=== PATIENT | female | born 1985 | race Caucasian/White ===

== ENCOUNTER 2017-05-14 05:04 | Inpatient (IN) | payer MEDICARE, MEDICAID ==
[2017-05-14] MEDS ORDERED: NS 0.9% 1000 ML* 1,000 ML IV ONE (05:10)
[2017-05-14] MEDS ORDERED: Charcoal ACTIVATED* 25 GM/120 ML BTL PO ONE (05:10)
[2017-05-14 05:25] LABS: Hematocrit 33 % (35-47); Hemoglobin 10.7 g/dl (12.0-16.0); Mean Corpuscular HGB Conc 32 g/dl (31-36); Mean Corpuscular Hemoglobin 27 pg (27-31); Mean Corpuscular Volume 83 fL (80-97); Mean Platelet Volume 8 um3 (7.4-10.4); Red Blood Count 4.02 10^6/ul (4.0-5.4); Red Cell Distribution Width 16 % (10.5-15); White Blood Count 5.2 10^3/ul (3.5-10.8)
[2017-05-14 05:47] LABS: ALT 26 U/L (7-52); AST 28 U/L (13-39); Albumin 4.3 g/dL (3.2-5.2); Alkaline Phosphatase 49 U/L (34-104); Anion Gap 9 mmol/L (2-11); BUN/Creatinine Ratio 8.2 (8-20); Blood Urea Nitrogen 6 mg/dL (6-24); CO2 Carbon Dioxide 25 mmol/L (22-32); Calcium 9.1 mg/dL (8.6-10.3); Chloride 105 mmol/L (101-111); EGFR African American 118.1 (>60); EGFR Non-African American 91.8 (>60); Globulin 3.2 g/dL (2-4); Glucose 98 mg/dL (70-100); Potassium 3.8 mmol/L (3.5-5.0); Sodium 139 mmol/L (133-145); Total Protein 7.5 g/dL (6.4-8.9)
[2017-05-14 05:59] LABS: Acetaminophen < 15 mcg/mL; Alcohol 205 mg/dL (<10); Salicylate < 2.50 mg/dL (<30)
--- NOTE | 2017-05-14 06:18 | ED ---
Prateek Velasquez Claudia, scribed for Quoc Haines MD on 05/14/17 at 0517 . Substance Abuse/Use - HPI Summary HPI Summary: 31 year old female presents to [facility] ED after allegedly taking about 30 10mg Ativan. Pt mother brought the pt in tonight. Pt took the pills at approximately 5:30am. 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 Ingestion History: Type/Name Of Drug - Ativan Overdose Characteristics: Oral - Allergies/Home Medications Allergies/Adverse Reactions: Allergies Allergy/AdvReac Type Severity Reaction Status Date / Time No Known Allergies Allergy Verified 05/14/17 06:40 PMH/Surg Hx/FS Hx/Imm Hx Previously Healthy: Yes Endocrine/Hematology History: Denies: Hx Diabetes Cardiovascular History: Denies: Hx Myocardial Infarction Infectious Disease History: Denies: Traveled Outside the [place] in Last 30 Days - Family History Family History: Bipolar Disorder - Social History Occupation: Disabled Lives: Alone Alcohol Use: None Hx Substance Use: No Substance Use Type: Reports: None Hx Tobacco Use: No Smoking Status (MU): Never Smoked Tobacco Review of Systems Positive: Depressed All Other Systems Reviewed And Are Negative: No Physical Exam Triage Information Reviewed: Yes Vital Signs On Initial Exam: Initial Vitals Temp Pulse Resp BP Pulse Ox 98.1 F 105 15 143/93 95 05/14/17 05:35 05/14/17 05:35 05/14/17 05:35 05/14/17 05:35 05/14/17 05:35 Vital Signs Reviewed: Yes Appearance: Positive: No Pain Distress - sleepy but arousable Skin: Positive: Warm Head/Face: Positive: Normal Head/Face Inspection Eyes: Positive: DAJA ENT: Positive: Hearing grossly normal Neck: Positive: Supple Respiratory/Lung Sounds: Positive: Clear to Auscultation, Breath Sounds Present Cardiovascular: Positive: RRR Abdomen Description: Positive: Nontender, Soft Bowel Sounds: Positive: Present Neurological: Positive: Alert, Oriented to Person Place, Time Psychiatric: Positive: Depressed Diagnostics - Vital Signs Vital Signs Temp Pulse Resp BP Pulse Ox 05/14/17 05:35 98.1 F 105 15 143/93 95 - Laboratory Lab Results: Lab Results 07/04/2505/14/17 05/14/17 Range/Units 05:15 05:15 05:15 WBC 5.2 (3.5-10.8) 10^3/ul RBC 4.02 (4.0-5.4) 10^6/ul Hgb 10.7 L (12.0-16.0) g/dl Hct 33 L (35-47) % MCV 83 (80-97) fL MCH 27 (27-31) pg MCHC 32 (31-36) g/dl RDW 16 H (10.5-15) % Plt Count 316 (150-450) 10^3/ul MPV 8 (7.4-10.4) um3 Neut % (Auto) 55.5 (38-83) % Lymph % (Auto) 37.3 (25-47) % [place] % (Auto) 5.1 (1-9) % Eos % (Auto) 1.9 (0-6) % Baso % (Auto) 0.2 (0-2) % Absolute Neuts (auto) 2.9 (1.5-7.7) 10^3/ul Absolute Lymphs (auto) 2.0 (1.0-4.8) 10^3/ul Absolute Monos (auto) 0.3 (0-0.8) 10^3/ul Absolute Eos (auto) 0.1 (0-0.6) 10^3/ul Absolute Basos (auto) 0 (0-0.2) 10^3/ul Absolute Nucleated RBC 0 10^3/ul Nucleated RBC % 0 Sodium 139 (133-145) mmol/L Potassium 3.8 (3.5-5.0) mmol/L Chloride 105 (101-111) mmol/L Carbon Dioxide 25 (22-32) mmol/L Anion Gap 9 (2-11) mmol/L BUN 6 (6-24) mg/dL Creatinine 0.73 (0.51-0.95) mg/dL Est GFR ( Amer) 118.1 (>60) Est GFR (Non-Af Amer) 91.8 (>60) BUN/Creatinine Ratio 8.2 (8-20) Glucose 98 (70-100) mg/dL Lactic Acid 1.8 (0.5-2.0) mmol/L Calcium 9.1 (8.6-10.3) mg/dL Total Bilirubin 0.20 (0.2-1.0) mg/dL AST 28 (13-39) U/L ALT 26 (7-52) U/L Alkaline Phosphatase 49 (34-104) U/L Total Protein 7.5 (6.4-8.9) g/dL Albumin 4.3 (3.2-5.2) g/dL Globulin 3.2 (2-4) g/dL Albumin/Globulin Ratio 1.3 (1-3) Salicylates < 2.50 (<30) mg/dL Acetaminophen < 15 mcg/mL Serum Alcohol 205 H (<10) mg/dL Result Diagrams: 05/14/17 05:15 05/14/17 05:15 Lab Statement: Any lab studies that have been ordered have been reviewed, and results considered in the medical decision making process. - EKG 5:41 Cardiac Rate: NL EKG Rhythm: Sinus Rhythm - 99 beats/min Course/Dx - Course Assessment/Plan: MDM: Charcoal is administered to the pt as soon as she arrived in the ED. Pt will be signed-out to Dr. Yousif at 0700 - Diagnoses Provider Diagnoses: Overdose - Critical Care Time Critical Care Time: 30-74 min Discharge - Discharge Plan Condition: Guarded Disposition: ADMITTED TO [facility] Discharge Disposition Comment: Signed-out at 0700am to Dr. Yousif. Referrals: Donna GALLO,Devan Rubalcava [Primary Care Provider] - The documentation as recorded by the Prateek ramirez Claudia accurately reflects the service I personally performed and the decisions made by , Quoc Haines MD.
[2017-05-14 10:11] LABS: Urine Bilirubin Negative (Negative); Urine Glucose Negative (Negative); Urine Nitrite Negative (Negative)
[2017-05-14] MEDS ORDERED: Albuterol/Ipratropium NEB.SOL* Albuterol 2.5 MG/Ipratropium 0.5 MG 3 ML INH ONE (10:45)
--- NOTE | 2017-05-14 11:47 | RAD ---
INDICATION: Hypoxia COMPARISON: Most recent comparison chest x-rays dated November 09, 2011 TECHNIQUE: Single AP portable view of the chest was obtained. FINDINGS: Image quality is compromised due to the relative inferiority of a portable chest x-ray. The heart and mediastinum exhibit normal size and contour. The lungs are grossly clear. There is no evidence of a large pleural effusion. Visualized bones are normal for the patient's age. IMPRESSION: No radiographic evidence for acute cardiopulmonary abnormality on this portable chest x-ray.
[2017-05-14] MEDS ORDERED: Al Hydrox/Mg Hydrox/Simet LIQ* 30 ML UDC PO PRN (12:32)
[2017-05-14] MEDS ORDERED: Nicotine Inhaler* 10 MG AMP INH PRN (12:32)
[2017-05-14 12:39] LABS: Benzodiazepine Urine Screen None Detected (None Detect)
[2017-05-14] MEDS: Acetaminophen TAB* 325 MG PO PRN (16:03)
[2017-05-14] MEDS: QUEtiapine TAB* 100 MG PO SCH (19:52)
[2017-05-14] MEDS ORDERED: Nicotine Patch Removal NOTE PATCH OFF SCH (21:00)
[2017-05-15] MEDS: Acetaminophen TAB* 325 MG PO PRN ×3 (00:50→12:20)
[2017-05-15] MEDS ORDERED: hydrOXYzine HCL TAB* 50 MG PO ONE (01:38)
[2017-05-15] MEDS ORDERED: hydrOXYzine HCL TAB* 50 MG ONE (01:41)
[2017-05-15] MEDS ORDERED: Nicotine PATCH 21 MG/24 HR* PATCH TRANSDERM SCH (08:00)
[2017-05-15] MEDS ORDERED: Nicotine PATCH 14 MG/24 HR* PATCH TRANSDERM SCH (08:00)
[2017-05-15] MEDS ORDERED: Nicotine PATCH 7 MG/24 HR* PATCH TRANSDERM SCH (08:00)
[2017-05-15] MEDS: Vitamin THERAPEUTIC TAB PO SCH (09:20)
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
[2017-05-15] MEDS ORDERED: Loperamide CAP* 2 MG PO ONE (16:05)
[2017-05-15] MEDS ORDERED: Loperamide CAP* 2 MG ONE ×2 (16:44→16:45)
[2017-05-15] MEDS ORDERED: Loperamide CAP* 2 MG PO PRN (18:53)
[2017-05-15] MEDS: LORazepam TAB(*) 1 MG PO SCH ×2 (19:03→20:26)
[2017-05-15] MEDS: Zolpidem TAB* 5 MG PO SCH (20:26)
[2017-05-15] MEDS: QUEtiapine TAB* 100 MG PO SCH (20:27)
[2017-05-16] MEDS: DULoxetine DR CAP* 30 MG CAP.DR PO SCH (09:49)
[2017-05-16] MEDS: LORazepam TAB(*) 1 MG PO SCH ×2 (09:49→21:47)
[2017-05-16] MEDS: Vitamin THERAPEUTIC TAB PO SCH (09:49)
[2017-05-16] MEDS: FLUoxetine CAP* 20 MG PO SCH (09:50)
[2017-05-16] MEDS: Methocarbamol TAB* 500 MG PO PRN (10:18)
[2017-05-16] MEDS: Acetaminophen TAB* 325 MG PO PRN (10:19)
[2017-05-16] MEDS: Zolpidem TAB* 5 MG PO SCH (21:47)
[2017-05-16] MEDS: QUEtiapine TAB* 100 MG PO SCH (21:47)
[2017-05-17] MEDS: LORazepam TAB(*) 1 MG PO SCH ×2 (08:37→20:18)
[2017-05-17] MEDS: DULoxetine DR CAP* 30 MG CAP.DR PO SCH (08:38)
[2017-05-17] MEDS: FLUoxetine CAP* 20 MG PO SCH (08:38)
[2017-05-17] MEDS: Vitamin THERAPEUTIC TAB PO SCH (08:38)
[2017-05-17] MEDS: Methocarbamol TAB* 500 MG PO PRN (08:53)
[2017-05-17] MEDS: Acetaminophen TAB* 325 MG PO PRN (10:59)
[2017-05-17] MEDS ORDERED: ALMOTRIPTAN 12.5 MG PO PRN (12:38)
--- NOTE | 2017-05-17 16:45 | PN ---
Subjective - Subjective Service Type: 70846 Hosp care 15 min low complexity Subjective: Carmen appears to be doing fine and says she feels a lot better and happy today. Denies any thoughts of self harm, hallucinations or delusions. Engaged in groups and following all unit routines. Planning to go out to help her mother and do lots of arts and crafts. Objective - Appearance Appearance: Obese Dysmorphic Features: No Hygiene: Normal Grooming: Well Kept - Behavior Psychomotor Activities: Normal Exhibits Abnormal Movement: No - Attitude and Relatedness Attitude and Relatedness: Appropriate - Speech Quality: Unpressured Latencies: Normal Quantity: Appropriate - Mood Patient's Decription of Mood: "Fine" - Affect Observed Affect: Non-labile Affect Consistent with: Euthymia - Thought Process Patient's Thought Process: Coherent, Goal Directed Thought Content: No Passive Wish, No Suicidal Planning, No Homicidal Ideation, No Paranoid Ideation - Sensorium Experiencing Hallucinations: No, Sensorium is Clear Type of Hallucinations: Visual: No, Auditory: No, Command: No - Level of Consciousness Level of Consciousness: Alert Orientation: Yes Intact, Yes Orientated to Time, Yes Orientated to Place, Yes Orientated to Person - Impulse Control Impulse Control: Intact - Insight and Judgement Insight and Judgement: Fair - Group Participation Particating in Group Activities: Yes - Medication Management Medication Management Adherence: Yes Assessment - Assessment Merits Inpatient Hospitalization: Consolidate Improvements, Pending Safe DC Plan Plan - Plan Treatment Plan: Name: CARMEN ANGLIN Birthdate: 1985 [id number] Continued Medication Management: Continue Outpt Medication Medications: Current Medications Acetaminophen (Tylenol Tab*) 650 mg PO Q4H PRN PRN Reason: for pain; or Temp >101 F Last Admin: 05/17/17 10:59 Dose: 650 mg Al Hydrox/Mg Hydrox/Simethicone (Maalox Plus*) 30 ml PO Q4H PRN PRN Reason: INDIGESTION Almotriptan Malate (Axert (Nf)) 12.5 mg PO BEDTIME PRN PRN Reason: MIGRAINE HEADACHE Duloxetine HCl (Cymbalta Cap*) 30 mg PO DAILY [facility] Last Admin: 05/17/17 08:38 Dose: 30 mg Fluoxetine HCl (Prozac Cap*) 40 mg PO DAILY [facility] Last Admin: 05/17/17 08:38 Dose: 40 mg Loperamide HCl (Imodium Cap*) 2 mg PO . PRN PRN Reason: AFTER EACH UNFORMED STOOL Lorazepam (Ativan Tab(*)) 1 mg PO BID BATSHEVA Last Admin: 05/17/17 08:37 Dose: 1 mg Methocarbamol (Robaxin Tab*) 750 mg PO DAILY PRN PRN Reason: SPASMS Last Admin: 05/17/17 08:53 Dose: 750 mg Multivitamins (Theragran Tab*) 1 tab PO DAILY BATSHEVA Last Admin: 05/17/17 08:38 Dose: 1 tab Nicotine (Nicotine Inhaler*) 10 mg INH Q2H PRN PRN Reason: CRAVING Quetiapine Fumarate (Seroquel Tab*) 200 mg PO BEDTIME BATSHEVA Last Admin: 05/16/17 21:47 Dose: 200 mg Zolpidem Tartrate (Ambien Tab*) 5 mg PO BEDTIME BATSHEVA Stop: 05/18/17 20:59 Last Admin: 05/16/17 21:47 Dose: Not Given - Discharge Plan Discharge Plan: Outpatient Follow Up Outpatient Program: [facility]
[2017-05-17] MEDS: Zolpidem TAB* 5 MG PO SCH (20:19)
[2017-05-17] MEDS: QUEtiapine TAB* 100 MG PO SCH (21:50)
[2017-05-18 08:10] VITALS: BP 120/75
[2017-05-18] MEDS: FLUoxetine CAP* 20 MG PO SCH (08:56)
[2017-05-18] MEDS: DULoxetine DR CAP* 30 MG CAP.DR PO SCH (08:57)
[2017-05-18] MEDS: LORazepam TAB(*) 1 MG PO SCH (08:57)
[2017-05-18] MEDS: Methocarbamol TAB* 500 MG PO PRN (08:57)
[2017-05-18] MEDS: Vitamin THERAPEUTIC TAB PO SCH (08:57)
--- NOTE | 2017-05-18 11:25 | PN ---
MHU: Group Therapy Note - Service Type Service Type: [id number] Group Psychotherapy - Cognitive Behavioral Group Therapy ( CBT):Patient was attentive and participatory in CBT programming this morning, and remained in good behavioral control. Patient expressed positive insights regarding relevant treatment interventions and goals.
--- NOTE | 2017-05-18 13:22 | DS ---
Subjective - Subjective Service Types: [id number] [facility] Day Mgmt simple under 30 min Subjective: Patient noted to be full in affect, pleasant and social with peers/staff over the weekend. Patient reports improvement in mood which she attributes to her improved sleep over the weekend. Patient on half home dose of Seroquel and half home dose of ambien. She reported no symptoms of hypoventilation syndrome and reported "great sleep". She denies med s/e on Duloxetine for fibromyalgia and Prozac for mood/anxiety. Patient reports no SI/HI or AH/VH over the weekend. Appetite has been wnl. Patient asked to present to her local ED if SI recurs. She was amenable and acknowledged understanding of her family and community supports. Objective - Appearance Appearance: Well Developed/Nourished Dysmorphic Features: No Hygiene: Normal Grooming: Fairly Well Kept - Behavior Psychomotor Activities: Normal Exhibits Abnormal Movement: No - Attitude and Relatedness Attitude and Relatedness: Cooperative Eye Contact: Fair - Speech Quality: Unpressured Latencies: Normal Quantity: Appropriate - Mood Patient's Decription of Mood: "Good" - Affect Observed Affect: Good Affect Consistent with: Euthymia - Thought Process Patient's Thought Process: Coherent Thought Content: No Passive Wish, No Suicidal Planning, No Homicidal Ideation, No Paranoid Ideation - Sensorium Experiencing Hallucinations: No, Sensorium is Clear Type of Hallucinations: Visual: No, Auditory: No, Command: No - Level of Consciousness Level of Consciousness: Alert Orientation: Yes Intact, Yes Orientated to Time, Yes Orientated to Place, Yes Orientated to Person - Impulse Control Impulse Control: Intact - Insight and Judgement Insight and Judgement: Good - Group Participation Particating in Group Activities: Yes - Medication Management Medication Management Adherence: Yes Treatment Course & Assessment Clinical Course & Impression: HOSPITAL COURSE: 31yo female with PPHx significant for MDD, Borderline PD, Alcohol use d/o, and Cannabis use d/o presented [place] [facility] [place] in by friends after patient reportedly OD on 29 -10mg Ambien tabs after her BF of 8 months abruptly ended their relationship. Patient also reports emotional strain as her parents are . Patient has hx of 1 prior suicide attempt. Per mother, patient called her just before the OD, as well as multiple friends. Patient reports no current MH provider, MH meds Rx'd by her PCP. Patient Rx'd Ambien 10mg qhs and Ativan currently by her PCP. In the ED, patient was stabilized. Patient currently report benzo w/d symptoms. On admission, patient was placed on scheduled Ativan and her Ambien has been continued, but at 5mg po qhs. Ativan to be discontinued on Thursday, and patient instructed Ambien and Seroquel will not be rxd together by this provider due to her current report of experiencing Sxs of MARISA vs Hypoventalation syndrome 2/2 likely to her meds. Patient's Ambien decreased to 5mg from 10mg po qhs and Seroquel was decreased to 200mg from 400mg po qhs. Patient was started on Duloxetine 30mg po qam for mood/anxiety and Fibromyalgia pain. Patient's Prozac was increased from 20mg to 40mg daily for mood/anxiety. Patient was monitored on this regimen over the weekend. On day of discharge, patient noted to be full in affect, pleasant and social with peers/staff over the weekend. Patient reports vast improvement in mood, which she attributes to her improved sleep over the weekend. She reported no symptoms of MARISA/hypoventilation syndrome and reported "great sleep". She denies med s/e. She was noted to participate in milieu activities and participate well in groups. Patient reports no SI/HI or AH/VH over the weekend. She is psychiatrically stable and future oriented. Pateint's acute risk has been reduced significantly. Patient is amenable to f/u and will be discharge home to mother's care. PERTINENT LABS: Laboratory Tests 05/14/17 05/14/17 05/14/17 05:15 05:15 05:15 WBC 5.2 RBC 4.02 Hgb 10.7 L Hct 33 L MCV 83 MCH 27 MCHC 32 RDW 16 H Plt Count 316 MPV 8 Neut % (Auto) 55.5 Lymph % (Auto) 37.3 [place]ye % (Auto) 5.1 Eos % (Auto) 1.9 Baso % (Auto) 0.2 Absolute Neuts (auto) 2.9 Absolute Lymphs (auto) 2.0 Absolute Monos (auto) 0.3 Absolute Eos (auto) 0.1 Absolute Basos (auto) 0 Absolute Nucleated RBC 0 Nucleated RBC % 0 Sodium 139 Potassium 3.8 Chloride 105 Carbon Dioxide 25 Anion Gap 9 BUN 6 Creatinine 0.73 Est GFR ( Amer) 118.1 Est GFR (Non-Af Amer) 91.8 BUN/Creatinine Ratio 8.2 Glucose 98 Lactic Acid 1.8 Calcium 9.1 Total Bilirubin 0.20 AST 28 ALT 26 Alkaline Phosphatase 49 Total Protein 7.5 Albumin 4.3 Globulin 3.2 Albumin/Globulin Ratio 1.3 Triglycerides Cholesterol LDL Cholesterol HDL Cholesterol Beta HCG, Quant < 0.60 Urine Color Urine Appearance Urine pH Ur Specific [place] Urine Protein Urine Ketones Urine Blood Urine Nitrate Urine Bilirubin Urine Urobilinogen Ur Leukocyte Esterase Urine Glucose Salicylates < 2.50 Urine Opiates Screen Acetaminophen < 15 Ur Barbiturates Screen Ur Phencyclidine Scrn Ur Amphetamines Screen U Benzodiazepines Scrn Urine Cocaine Screen U Cannabinoids Screen Serum Alcohol 205 H 05/14/17 05/14/17 05/15/17 10:00 12:05 05:15 WBC RBC Hgb Hct MCV MCH MCHC RDW Plt Count MPV Neut % (Auto) Lymph % (Auto) [place]ye % (Auto) Eos % (Auto) Baso % (Auto) Absolute Neuts (auto) Absolute Lymphs (auto) Absolute Monos (auto) Absolute Eos (auto) Absolute Basos (auto) Absolute Nucleated RBC Nucleated RBC % Sodium Potassium Chloride Carbon Dioxide Anion Gap BUN Creatinine Est GFR ( Amer) Est GFR (Non-Af Amer) BUN/Creatinine Ratio Glucose Lactic Acid Calcium Total Bilirubin AST ALT Alkaline Phosphatase Total Protein Albumin Globulin Albumin/Globulin Ratio Triglycerides 605 Cholesterol 301 LDL Cholesterol HDL Cholesterol 49.0 Beta HCG, Quant Urine Color Straw Urine Appearance Clear Urine pH 7.0 Ur Specific [place] 1.006 L Urine Protein Negative Urine Ketones Negative Urine Blood Negative Urine Nitrate Negative Urine Bilirubin Negative Urine Urobilinogen Negative Ur Leukocyte Esterase Negative Urine Glucose Negative Salicylates Urine Opiates Screen None detected Acetaminophen Ur Barbiturates Screen None detected Ur Phencyclidine Scrn None detected Ur Amphetamines Screen None detected U Benzodiazepines Scrn None detected Urine Cocaine Screen None detected U Cannabinoids Screen Presumptive positive H Serum Alcohol Discharge Meds: Home Medications Medication Instructions Recorded Confirmed Type Axert (NF) 12.5 mg PO BEDTIME 05/14/17 05/14/17 History Robaxin-750 MG TAB 750 mg PO BEDTIME 05/14/17 05/14/17 History Singulair 10 MG TAB* 10 mg PO BEDTIME 05/14/17 05/14/17 History Aciphex (NF) 20 mg PO BEDTIME #30 05/18/[address] CAP* [Cymbalta CAP*] 30 mg PO DAILY #30 cap 05/18/17 Rx FLUoxetine CAP* [Prozac CAP*] 40 mg PO DAILY #60 cap 05/18/17 Rx QUEtiapine TAB* [Seroquel TAB*] 200 mg PO BEDTIME #60 tab 05/18/17 Rx Vitamin THERAPEUTIC TAB* 1 tab PO DAILY #30 tab 05/18/17 Rx [Theragran TAB*] Consultants: NONE Follow-Up: Appts for within the next 2 weeks scheduled by for PCP who Rx's meds. Clear for Discharge: Adequate Clinical Respons, Acceptable Safety Profile Inpatient DSM-IV Dx: 1. MDD, R,S w/o PFs. 2. Borderline PD. 3. Alcohol use d/o. 4. Cannabis use d/o Discharge Planning - Discharge Planning Discharge Plan: Outpatient Follow Up Recommendations for Continuing Care: Psychotherapy Medications: Current Medications Acetaminophen (Tylenol Tab*) 650 mg PO Q4H PRN PRN Reason: for pain; or Temp >101 F Last Admin: 05/17/17 10:59 Dose: 650 mg Al Hydrox/Mg Hydrox/Simethicone (Maalox Plus*) 30 ml PO Q4H PRN PRN Reason: INDIGESTION Almotriptan Malate (Axert (Nf)) 12.5 mg PO BEDTIME PRN PRN Reason: MIGRAINE HEADACHE Duloxetine HCl (Cymbalta Cap*) 30 mg PO DAILY [facility] Last Admin: 05/18/17 08:57 Dose: 30 mg Fluoxetine HCl (Prozac Cap*) 40 mg PO DAILY [facility] Last Admin: 05/18/17 08:56 Dose: 40 mg Loperamide HCl (Imodium Cap*) 2 mg PO . PRN PRN Reason: AFTER EACH UNFORMED STOOL Last Admin: 05/17/17 23:40 Dose: 2 mg Lorazepam (Ativan Tab(*)) 0.5 mg PO BID [facility] Methocarbamol (Robaxin Tab*) 750 mg PO DAILY PRN PRN Reason: SPASMS Last Admin: 05/18/17 08:57 Dose: 750 mg Multivitamins (Theragran Tab*) 1 tab PO DAILY [facility] Last Admin: 05/18/17 08:57 Dose: 1 tab Nicotine (Nicotine Inhaler*) 10 mg INH Q2H PRN PRN Reason: CRAVING Quetiapine Fumarate (Seroquel Tab*) 200 mg PO BEDTIME [facility] Last Admin: 05/17/17 21:50 Dose: 200 mg Discharge Planning: Prescriptions provided for discharge [x] Yes [] No Follow up care details as per social work arrangements. Patient response to discharge plan: [] eager for discharge [x] agreeable with discharge plan [] ambivalent about discharge [] disagrees with discharge today
[2017-05-18] MEDS ORDERED: LORazepam TAB(*) 1 MG PO SCH (21:00)
== END 2017-05-18 16:13 | disposition home or self-care (01) | DRG 885 ==
LOC: ED 05:04 → BSU 12:32
PROVIDERS: ADMIT Psychiatry & Neurology Psychiatry; ATTEND Psychiatry & Neurology Psychiatry
DX: F33.2 Major depressive disorder, recurrent severe without psychotic features (principal); F60.3 Borderline personality disorder; F10.10 Alcohol abuse, uncomplicated; F12.10 Cannabis abuse, uncomplicated; Y90.7 Blood alcohol level of 200-239 mg/100 ml; T42.6X2A Poisoning by other antiepileptic and sedative-hypnotic drugs, intentional self-harm, initial encounter; Y92.9 Unspecified place or not applicable; X58.XXXA Exposure to other specified factors, initial encounter; Z81.8 Family history of other mental and behavioral disorders; K21.9 Gastro-esophageal reflux disease without esophagitis; M79.7 Fibromyalgia
CPT/HCPCS: 36415; 71010; 80053; 80061; 80307; 80320; 80329; 81003; 83605; 84702; 85025; 90853; 93005; 99222; 99231; 99238; A9270-GY; G0480

== ENCOUNTER 2017-08-22 17:43 | Emergency (ER) | payer MEDICARE, MEDICAID ==
[2017-08-22 18:32] VITALS: BP 128/72
[2017-08-22] MEDS ORDERED: Lidocaine 2% VISCOUS* 15 ML UDC SWISH SPIT ONE (20:40)
[2017-08-22] MEDS ORDERED: predniSONE TAB* 20 MG PO ONE (20:42)
[2017-08-23 14:44] LABS: EBV Response YES
[2017-08-23 15:14] LABS: Manual Entry Verification MER0007; Mono Internal Control QC Line Present
[2017-08-25 11:00] LABS: EBV Capsid Ag IgG Ab Positive (Negative); EBV Capsid Ag IgM Ab Negative (Negative)
--- NOTE | 2017-08-25 15:50 | ED ---
Progress - Progress Note Progress Note: IGG EBV (+), IGM EBV (-), MOST LIKELEY PAST INFECTION. F/U PCP/ER IF WORSE. Course/Dx - Diagnoses Provider Diagnoses: Sore throat
--- NOTE | 2017-08-25 16:43 | ED ---
Progress - Progress Note Progress Note: IGG EBV (+), IGM EBV (-), MOST LIKELEY PAST INFECTION. F/U PCP/ER IF WORSE. THROAT CX NORMAL KONSTANTIN Course/Dx - Diagnoses Provider Diagnoses: Sore throat
--- NOTE | 2017-08-30 17:21 | UC ---
Semaj Velasquez Thomas, scribed for Delaney Remy DO on 08/22/17 at 2000 . Throat Pain/Nasal Dean HPI - HPI Summary HPI Summary: The pt is a 32 y/o F presenting to [facility] [place] [facility] [place]/o a sore throat that began a week ago. The pt rates the pain 8/10. The pain is aggravated by swallowing and coughing. It is alleviated by nothing. The patient is still able to eat, drink, and swallow, although these activities are painful. 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 Pt additionally c/o a cough (with green production) and generalized malaise. The patient has treated the cough with her rescue inhaler. Pt denies F/S/C, abd pain, N/V, CP, SOB, rashes, and hemoptysis. The patient is accompanied by her mother. - History of Current Complaint Chief Complaint: UCRespiratory Stated Complaint: THROAT PAIN Time Seen by Provider: 08/22/17 19:49 Hx Obtained From: Patient, Family/Promotional Marketing Analyst - mother is present Hx Last Menstrual Period: one week ago Onset/Duration: Lasting Weeks - onset one week ago, Still Present Pain Intensity: 8 Pain Scale Used: 0-10 Numeric Cough: Productive - with green production Associated Signs & Symptoms: Negative: Fever, Vomiting, Rash, Other - NEGATIVE: chills, sweats, abd pain, CP, SOB, rashes, nausea Related History: Smoking - Allergies/Home Medications Allergies/Adverse Reactions: Allergies Allergy/AdvReac Type Severity Reaction Status Date / Time Adhesive Tape Allergy Blisters Verified 08/22/17 18:33 Eletriptan [From Relpax] Allergy Swelling Verified 08/22/17 18:34 Of Face,Lips,& Throat Sertraline [From Zoloft] Allergy Hives Verified 08/22/17 18:33 Sumatriptan [From Imitrex] Allergy See Comment Verified 08/22/17 18:34 PMH/Surg Hx/FS Hx/Imm Hx Previously Healthy: No - Lyme, Rakesh-Fitzgerald Respiratory History: Asthma Neurological History: Other Other Neurological History: Fibromyalgia Psychological History: Anxiety, Depression, Bipolar Disorder - Surgical History Surgical History: None - Family History Known Family History: Positive: Cardiac Disease, Hypertension, Diabetes Family History: Bipolar Disorder - Social History Alcohol Use: Occasionally Substance Use Type: Marijuana Smoking Status (MU): Light Every Day Tobacco Smoker - Immunization History Most Recent Influenza Vaccination: Unknown Most Recent Pneumonia Vaccination: Unknown Review of Systems Constitutional: Other - Generalized malaise ENT: Sore Throat Respiratory: Cough Is Patient Immunocompromised?: No All Other Systems Reviewed And Are Negative: Yes Physical Exam Triage Information Reviewed: Yes Appearance: Well-Appearing, No Pain Distress, Well-Nourished Vital Signs: Initial Vital Signs Temp 97.2 F 08/22/17 18:28 Pulse 88 08/22/17 18:28 Resp 18 08/22/17 18:28 BP 128/72 08/22/17 18:28 Pulse Ox 99 08/22/17 18:28 Vital Signs Reviewed: Yes Eyes: Positive: Conjunctiva Clear. Negative: Discharge ENT: Positive: Hearing grossly normal. Negative: Muffled/hoarse voice Neck exam: Normal Neck: Positive: Supple Respiratory: Positive: Lungs clear, Normal breath sounds, No respiratory distress, No accessory muscle use Cardiovascular: Positive: RRR, No Murmur Musculoskeletal Exam: Normal Neurological: Positive: Alert, Muscle Tone Normal Psychological Exam: Normal Psychological: Positive: Age Appropriate Behavior Skin Exam: Normal Skin: Positive: Other - Warm, dry, normal color Throat Pain/Nasal Course/Dx - Course Course Of Treatment: High blood pressure noted. Medications reviewed this visit. The patient has been encouraged to stop smoking. Assessment/Plan: The pt is a 32 y/o F c/o a sore throat that began a week ago as well as a cough with green production. She was advised to go to the ED if she develops inability to swallow or breathe. - Differential Dx/Diagnosis Provider Diagnoses: pharyngitis, Elevated blood pressure without a diagnosis of hypertension, Discharge - Discharge Plan Condition: Stable Disposition: HOME Prescriptions: Magic Mouth Was-EVARISTO/MAAL/LIDO* 5 ml SWISH SPIT QID PRN #100 ml PRN Reason: Pain predniSONE TAB* [Deltasone TAB*] 40 mg PO DAILY #8 tab Patient Education Materials: Pharyngitis (ED) Referrals: Donna GALLO,Devan Rubalcava [Primary Care Provider] - If Needed Additional Instructions: CORTICOSTEROID MEDICATION: You have been given a medicine of the cortisone class. This medication is used to control inflammation or allergy. It is usually only given for a short period of time, until the acute process subsides. There are usually no side effects from short-term use of cortisone-like medications. Some persons feel an increased sense of well-being and are not sleepy at bedtime. Long-term use of cortisone medications is best avoided, unless required for a severe condition. If your condition does not remit, or relapses after the course of corticosteroid medication, you should consult your physician. Contact the physician if you develop lightheadedness, black or tarry stools , swelling of the legs, or significant rapid change in weight. Your blood pressure was elevated at this visit. That does not mean you have hypertension, it is probably due to your current condition. Please follow up with your primary care provider. You should go to the nearest emergency department if you develop any difficulty breathing, inability to swallow, or your symptoms worsen. Try magic mouthwash to control pain before eating. The documentation as recorded by the Semaj ramirez Thomas accurately reflects the service I personally performed and the decisions made by me, Delaney Remy DO.
== END 2017-08-22 21:03 | disposition home or self-care (01) ==
LOC: UCEAST 17:43
DX: J02.9 Acute pharyngitis, unspecified (principal); R03.0 Elevated blood-pressure reading, without diagnosis of hypertension; R05 Cough; R53.81 Other malaise; J45.909 Unspecified asthma, uncomplicated; F41.9 Anxiety disorder, unspecified; F31.9 Bipolar disorder, unspecified; F17.210 Nicotine dependence, cigarettes, uncomplicated
CPT/HCPCS: 36415; 86308; 86664; 86665; 87070; 87651; 99212; G0463; J7512

== ENCOUNTER 2017-09-02 19:07 | Emergency (ER) | payer MEDICARE, MEDICAID ==
[2017-09-02 19:18] VITALS: BP 128/79
--- NOTE | 2017-09-02 19:47 | UC ---
Complaint Female HPI - HPI Summary HPI Summary: This is a 32 yo female who presents with c/o dysuria. She recently became sexually active again. She has had one episode of unprotected intercouse. She reports dysuria and freq. No hematuria. Lower pelvic pain. She denies vaginal discharge or odor. Some discomfort with intercourse. She also reports she has not had a BM in 2-3 d She was seen ~10d ago with c/o sore throat. Throat cx was negative at that time. Strep/mono screening also neg. She was Rx'd prednisone and magic mouthwash at that time. Some improvement in her ST. She has been coughing freq and using her albuterol inhaler when she occasionally becomes short of breath. She just recently quit smoking. - History Of Current Complaint Chief Complaint: UCRespiratory Stated Complaint: UTI AND THROAT COMPLAINT Hx Last Menstrual Period: 08/12/17 - Allergies/Home Medications Allergies/Adverse Reactions: Allergies Allergy/AdvReac Type Severity Reaction Status Date / Time Adhesive Tape Allergy Blisters Verified 09/02/17 19:18 Eletriptan [From Relpax] Allergy Swelling Verified 09/02/17 19:18 Of Face,Lips,& Throat Sertraline [From Zoloft] Allergy Hives Verified 09/02/17 19:18 Sumatriptan [From Imitrex] Allergy See Comment Verified 09/02/17 19:18 Home Medications: Home Medications Albuterol HFA INHALER* [Ventolin HFA Inhaler*] 1 puff INH Q4H PRN 09/02/17 [ History Confirmed 09/02/17] Varenicline (NF) [Chantix 1 MG TAB (NF)] 09/02/17 [History] PMH/Surg Hx/FS Hx/Imm Hx Previously Healthy: No Respiratory History: Asthma Psychological History: Depression - Surgical History Surgical History: None - Family History Known Family History: Positive: Cardiac Disease, Hypertension, Diabetes Family History: Bipolar Disorder - Social History Alcohol Use: Occasionally Substance Use Type: Marijuana Smoking Status (MU): Light Every Day Tobacco Smoker - Immunization History Most Recent Influenza Vaccination: Unknown Most Recent Pneumonia Vaccination: Unknown Review of Systems Constitutional: Negative Skin: Negative Eyes: Negative ENT: Negative Respiratory: Cough Cardiovascular: Negative Gastrointestinal: Abdominal Pain Genitourinary: Dysuria, Frequency Motor: Negative Neurovascular: Negative Musculoskeletal: Negative Neurological: Negative Psychological: Negative Is Patient Immunocompromised?: No All Other Systems Reviewed And Are Negative: Yes Physical Exam Triage Information Reviewed: Yes Appearance: Well-Appearing Vital Signs: Initial Vital Signs Temp 98.1 F 09/02/17 19:13 Pulse 76 09/02/17 19:13 Resp 18 09/02/17 19:13 BP 128/79 09/02/17 19:13 Pulse Ox 100 09/02/17 19:13 Vital Signs Reviewed: Yes ENT: Positive: Normal ENT inspection, Hearing grossly normal, Pharynx normal Neck: Positive: Supple, Nontender, No Lymphadenopathy Respiratory: Positive: Chest non-tender, Lungs clear, Normal breath sounds. Negative: Crackles, Rhonchi, Wheezing Cardiovascular Exam: Normal Cardiovascular: Positive: RRR, No Murmur Abdomen Description: Positive: Soft. Negative: Nontender - TTP in lower pelvic region Musculoskeletal Exam: Normal Musculoskeletal: Positive: Strength Intact Neurological: Positive: Alert Psychological Exam: Normal Skin Exam: Normal - Additional Comments Vaginal exam: External genitalia appears benign, no lesions or erythema. Thick white discharge present over the elkins of the vagina. Cervix is benign appearing. NO CMT, but generalized discomfort with bimanual exam. Diagnostics - Laboratory Diagnostic Studies Completed/Ordered: UA - neg. Upreg - neg Complaint Female Dx - Course Course Of Treatment: This is a 32 yo female with c/o dysuria, freq and lower abd discomfort with constipation. UA and preg testing neg. Pelvic exam suggestive a yeast infection. Emprically treat with Diflucan x 1 dose. GC/Chl and Affirm testing sent. Recommend use of stool softeners for constipation. - Differential Dx/Diagnosis Differential Diagnosis/HQI/PQRI: Cervicitis, Pelvic Inflammatory Disease, Sexually Transmitted Disease, Urinary Tract Infection Provider Diagnoses: 1. Vaginal candidiasis Discharge - Discharge Plan Condition: Stable Disposition: HOME Patient Education Materials: Vulvovaginal Candidiasis (ED) Referrals: Donna GALLO,Devan Rubalcava [Primary Care Provider] - If Needed Additional Instructions: Instructions: 1. You will be notified of positive testing results 2. Cont stool softener and use Miralax or MagCitrate if you do not have a BM tomorrow
[2017-09-02] MEDS ORDERED: Fluconazole 100 MG TAB* TAB PO ONE (19:57)
--- NOTE | 2017-09-03 18:25 | UC ---
Progress - Progress Note Progress Note: call patient. gardernella (+) and belle (-) and trich (-). will call in flagyl 500 bid x 7 days
--- NOTE | 2017-09-04 15:24 | UC ---
Progress - Progress Note Progress Note: call patient. gardernella (+) and belle (-) and trich (-). will call in flagyl 500 bid x 7 days 09/04/17 call patient g/c negative
== END 2017-09-02 20:12 | disposition home or self-care (01) ==
LOC: UCEAST 19:07
DX: B37.3 Candidiasis of vulva and vagina (principal); Z32.02 Encounter for pregnancy test, result negative; J45.909 Unspecified asthma, uncomplicated; F32.9 Major depressive disorder, single episode, unspecified; F17.200 Nicotine dependence, unspecified, uncomplicated
CPT/HCPCS: 81003; 84702; 87480; 87491; 87510; 87591; 87660; 99212; A9270-GY; G0463

== ENCOUNTER 2018-01-11 15:03 | Emergency (ER) | payer MEDICARE, MEDICAID ==
[2018-01-11 15:14] VITALS: BP 142/88
--- NOTE | 2018-01-11 15:18 | UC ---
Throat Pain/Nasal Dean HPI - HPI Summary HPI Summary: Pt presents with intermittent sinus pain/pressure/congestion for the last 2 months. Over the last 1-2 weeks her symptoms have become worse and have been constant. She has tried OTC cold and flu medications with no relief. Denies fever, chills, cough, SOB, chest pain, abdominal pain, n/v/d/c. She is still smoking daily. - History of Current Complaint Chief Complaint: UCRespiratory Stated Complaint: SINUS CONGESTION Time Seen by Provider: 01/11/18 15:18 Hx Obtained From: Patient Hx Last Menstrual Period: 12/25/17 Severity: Mild Pain Intensity: 2 Pain Scale Used: 0-10 Numeric - Allergies/Home Medications Allergies/Adverse Reactions: Allergies Allergy/AdvReac Type Severity Reaction Status Date / Time Adhesive Tape Allergy Blisters Verified 01/11/18 15:17 eletriptan [From Relpax] Allergy Swelling Verified 01/11/18 15:17 Of Face,Lips,& Throat sertraline [From Zoloft] Allergy Hives Verified 01/11/18 15:17 sumatriptan [From Imitrex] Allergy Altered Verified 01/11/18 15:17 Mental Status PMH/Surg Hx/FS Hx/Imm Hx Psychological History: Anxiety, Depression, Bipolar Disorder - Surgical History Surgical History: None - Family History Known Family History: Positive: Cardiac Disease, Hypertension, Diabetes Family History: Bipolar Disorder - Social History Occupation: Employed Full-time Lives: Alone Alcohol Use: Occasionally Substance Use Type: Marijuana Smoking Status (MU): Light Every Day Tobacco Smoker Cessation Counseling: Counseled 3+Min - 10 Min - Immunization History Most Recent Influenza Vaccination: Unknown Most Recent Pneumonia Vaccination: Unknown Review of Systems Constitutional: Negative Skin: Negative Eyes: Negative ENT: Sore Throat, Nasal Discharge, Sinus Congestion, Sinus Pain/Tenderness Respiratory: Negative Cardiovascular: Negative Gastrointestinal: Negative All Other Systems Reviewed And Are Negative: Yes Physical Exam - Summary Physical Exam Summary: GENERAL: NAD. WDWN HEENT: NC/AT. Conjunctiva clear without inflammation or discharge. TMs intact , no bulging, erythema, or edema. Nasal mucosa mildly swollen and erythematous with yellow/clear discharge. No polyps noted. TTP maxillary and frontal sinus. Posterior oropharynx without exudates, erythema, or tonsillar enlargement. Uvula midline. NECK: Supple without lymphadenopathy CHEST: CTAB. No r/r/w. No accessory muscle use. Breathing comfortably and in no distress. CV: RRR. Without m/r/g. Pulses intact. SKIN: No rash or erythema noted. NEURO: Alert. CN II-XII grossly intact. PSYCH: Age appropriate behavior. Triage Information Reviewed: Yes Vital Signs: Initial Vital Signs Temp 97.0 F 01/11/18 15:11 Pulse 81 01/11/18 15:11 Resp 18 01/11/18 15:11 BP 142/88 01/11/18 15:11 Pulse Ox 98 01/11/18 15:11 Throat Pain/Nasal Course/Dx - Course Course Of Treatment: Sinusitis - Amoxicillin - Differential Dx/Diagnosis Provider Diagnoses: Sinusitis Discharge - Discharge Plan Condition: Stable Disposition: HOME Prescriptions: Amoxicillin PO (*) [Amoxicillin 500 MG CAP*] 500 mg PO Q12H #20 cap Patient Education Materials: Sinusitis (ED) Referrals: Donna GALLO,Devan Rubalcava [Primary Care Provider] - Additional Instructions: If you develop a fever, shortness of breath, chest pain, new or worsening symptoms - please call your PCP or go to the ED. Your blood pressure was high at todays visit. Please see your primary provider within 4 weeks for recheck and re-evaluation.
== END 2018-01-11 15:33 | disposition home or self-care (01) ==
LOC: UCEAST 15:03
DX: J32.9 Chronic sinusitis, unspecified (principal); F17.200 Nicotine dependence, unspecified, uncomplicated; F32.9 Major depressive disorder, single episode, unspecified; F41.9 Anxiety disorder, unspecified
CPT/HCPCS: 99212; G0463

== ENCOUNTER 2018-08-15 19:45 | Emergency (ER) | payer MEDICARE, MEDICAID ==
[2018-08-15 19:55] VITALS: BP 132/82
[2018-08-15] MEDS ORDERED: Ipratropium 0.5MG/2.5ML NEB* 0.5 MG/2.5 ML NEB.SOLN INH ONE (20:14)
[2018-08-15] MEDS ORDERED: Azithromycin TAB* 250 MG PO ONE (20:14)
[2018-08-15] MEDS ORDERED: Albuterol 2.5 MG/3 ML NEB.SOL* (0.083%) INH ONE (20:14)
--- NOTE | 2018-08-15 20:18 | UC ---
Respiratory Complaint HPI - HPI Summary HPI Summary: The patient is a 33-year-old female that has had nasal congestion, postnasal drip, sinus pressure and pain, as well as wheezing times one week. She has a history of asthma. She has been using her rescue inhaler. - History of Current Complaint Chief Complaint: UCRespiratory Stated Complaint: URI Time Seen by Provider: 08/15/18 19:56 Hx Obtained From: Patient Hx Last Menstrual Period: 1 WEEK AGO Onset/Duration: Gradual Onset, Lasting Days Timing: Constant Severity Initially: Mild Severity Currently: Moderate Pain Intensity: 5 Pain Scale Used: 0-10 Numeric Character: Cough: Productive Aggravating Factors: Exertion, Deep Breaths, Recumbent Position Alleviating Factors: Bronchodilator Associated Signs And Symptoms: Positive: Wheezing, Nasal Congestion, Sinus Discomfort - Allergies/Home Medications Allergies/Adverse Reactions: Allergies Allergy/AdvReac Type Severity Reaction Status Date / Time Adhesive Tape Allergy Blisters Verified 08/15/18 19:55 eletriptan [From Relpax] Allergy Swelling Verified 08/15/18 19:55 Of Face,Lips,& Throat sertraline [From Zoloft] Allergy Hives Verified 08/15/18 19:55 sumatriptan [From Imitrex] Allergy Altered Verified 08/15/18 19:55 Mental Status METALS Allergy SKIN Uncoded 08/15/18 19:55 REACTION Home Medications: Home Medications Zolpidem TAB* [Ambien TAB*] 5 mg PO BEDTIME PRN 08/15/18 [History Confirmed 05/26] PMH/Surg Hx/FS Hx/Imm Hx Previously Healthy: Yes - lyme disease Respiratory History: Asthma, Bronchitis Psychological History: Anxiety, Depression - Surgical History Surgical History: Yes Surgery Procedure, Year, and Place: ARTHROSCOPIC SURGERY LEFT KNEE - Family History Known Family History: Positive: Cardiac Disease, Hypertension, Diabetes Family History: Bipolar Disorder - Social History Alcohol Use: Occasionally Substance Use Type: Marijuana Smoking Status (MU): Current Every Day Smoker Type: Cigarettes Amount Used/How Often: 4 CIG/DAY - Immunization History Most Recent Influenza Vaccination: Unknown Most Recent Pneumonia Vaccination: Unknown Review of Systems Constitutional: Negative Skin: Negative Eyes: Negative ENT: Nasal Discharge, Sinus Congestion, Sinus Pain/Tenderness Respiratory: Cough Cardiovascular: Negative Gastrointestinal: Negative Genitourinary: Negative Motor: Negative Neurovascular: Negative Musculoskeletal: Negative Neurological: Negative Psychological: Negative All Other Systems Reviewed And Are Negative: Yes Physical Exam Triage Information Reviewed: Yes Appearance: Well-Appearing, No Pain Distress, Well-Nourished Vital Signs: Initial Vital Signs Temp 96.5 F 08/15/18 19:52 Pulse 96 08/15/18 19:52 Resp 16 08/15/18 19:52 BP 132/82 08/15/18 19:52 Pulse Ox 97 08/15/18 19:52 Vital Signs Reviewed: Yes Eyes: Positive: Conjunctiva Clear ENT: Positive: Hearing grossly normal, Nasal congestion, Nasal drainage, TMs normal, Uvula midline. Negative: Trismus, Muffled voice, Hoarse voice, Sinus tenderness Neck: Positive: Supple, Nontender, No Lymphadenopathy Cardiovascular: Positive: RRR, No Murmur Musculoskeletal: Positive: ROM Intact, No Edema Neurological: Positive: Alert Psychological Exam: Normal Skin Exam: Normal UC Diagnostic Evaluation - Laboratory O2 Sat by Pulse Oximetry: 97 - normal, not hypoxic Respiratory Course/Dx - Differential Dx/Diagnosis Provider Diagnoses: acute bronchitis with bronchospasm Discharge - Sign-Out/Discharge Documenting (check all that apply): Patient Departure All imaging exams completed and their final reports reviewed: No Studies - Discharge Plan Condition: Stable Disposition: HOME Prescriptions: Albuterol HFA INHALER* [Ventolin HFA Inhaler*] 2 puff INH QID #1 mdi Azithromycin TAB* [Zithromax TAB*] 250 mg PO DAILY #4 tab predniSONE [Deltasone 20 MG TAB] 40 mg PO DAILY #10 tab Patient Education Materials: Acute Bronchitis (ED) Forms: *Gen. Provider Communication Referrals: Donna GALLO,Devan Rubalcava [Primary Care Provider] - 4 Days (if not better) Additional Instructions: use your rescue inhaler as directed recheck for new or worsening symptoms - Billing Disposition and Condition Condition: STABLE Disposition: Home
== END 2018-08-15 20:53 | disposition home or self-care (01) ==
LOC: UCEAST 19:45
DX: J20.9 Acute bronchitis, unspecified (principal); F32.9 Major depressive disorder, single episode, unspecified; F17.210 Nicotine dependence, cigarettes, uncomplicated; F41.9 Anxiety disorder, unspecified; J45.909 Unspecified asthma, uncomplicated; Z91.09 Other allergy status, other than to drugs and biological substances; Z88.8 Allergy status to other drugs, medicaments and biological substances
CPT/HCPCS: 99213; A9270-GY; G0463

== ENCOUNTER 2019-02-28 21:22 | Emergency (ER) | payer MEDICARE, MEDICAID ==
[2019-02-28 21:46] VITALS: BP 140/98
--- NOTE | 2019-02-28 21:52 | UC ---
Throat Pain/Nasal Dean HPI - HPI Summary HPI Summary: 33 yo female presents sinus pain/pressure/congestion, post nasal drip, and dry cough for the last week getting progressively worse. She has not been taking anything OTC for her symptoms. Has felt hot/cold at times, but has not taken her temperature. Denies sore throat, rash, abdominal pain, n/v. - History of Current Complaint Chief Complaint: UCGeneralIllness Stated Complaint: SORE THROAT, ACHES, AND CONGESTION Time Seen by Provider: 02/28/19 21:52 Hx Obtained From: Patient Hx Last Menstrual Period: [id number] Onset/Duration: Gradual Onset Severity: Mild Pain Intensity: 1 Pain Scale Used: 0-10 Numeric - Allergies/Home Medications Allergies/Adverse Reactions: Allergies Allergy/AdvReac Type Severity Reaction Status Date / Time Adhesive Tape Allergy Blisters Verified 02/28/19 21:46 eletriptan [From Relpax] Allergy Swelling Verified 02/28/19 21:46 Of Face,Lips,& Throat prednisone Allergy Agitation Verified 02/28/19 21:46 sertraline [From Zoloft] Allergy Hives Verified 02/28/19 21:46 sumatriptan [From Imitrex] Allergy Altered Verified 02/28/19 21:46 Mental Status METALS Allergy SKIN Uncoded 02/28/19 21:46 REACTION Home Medications: Home Medications Albuterol HFA INHALER* [Ventolin HFA Inhaler*] 2 puff INH QID PRN 02/28/19 [ History Confirmed 02/28/19] Loratadine 10 mg PO DAILY PRN 02/28/19 [History Confirmed 02/28/19] Varenicline (NF) [Chantix 1 MG TAB (NF)] 1 mg PO DAILY 02/28/19 [History Confirmed 02/28/19] traMADol TAB* [Ultram*] 50 mg PO Q6HR PRN 02/28/19 [History Confirmed 02/28/19] PMH/Surg Hx/FS Hx/Imm Hx Respiratory History: Asthma Psychological History: Anxiety, Depression, Bipolar Disorder - Surgical History Surgical History: Yes Surgery Procedure, Year, and Place: ARTHROSCOPIC SURGERY LEFT KNEE - Family History Known Family History: Positive: Cardiac Disease, Hypertension, Diabetes Family History: Bipolar Disorder - Social History Lives: With Family Alcohol Use: Occasionally Substance Use Type: Marijuana Smoking Status (MU): Former Smoker Type: Cigarettes Amount Used/How Often: 4 CIG/DAY When Did the Patient Quit Smoking/Using Tobacco: [id number] - Immunization History Most Recent Influenza Vaccination: Unknown Most Recent Pneumonia Vaccination: Unknown Review of Systems All Other Systems Reviewed And Are Negative: Yes Constitutional: Positive: Negative Skin: Positive: Negative Eyes: Positive: Negative ENT: Positive: Nasal Discharge, Sinus Congestion, Sinus Pain/Tenderness Respiratory: Positive: Negative Cardiovascular: Positive: Negative Gastrointestinal: Positive: Negative Neurovascular: Positive: Negative Neurological: Positive: Negative Psychological: Positive: Negative Physical Exam - Summary Physical Exam Summary: GENERAL: NAD. WDWN. No pain distress. SKIN: No rashes, sores, lesions, or open wounds. HEENT: Head: AT/NC Eyes: EOM intact. Conjunctiva clear without inflammation or discharge. Ears: Hearing grossly normal. TMs intact, no bulging, erythema, or edema. Nose: Nasal mucosa mildly swollen and erythematous with yellow/ clear discharge. TTP maxillary and frontal sinus. Positive post nasal drip Throat: Posterior oropharynx without exudates, erythema, or tonsillar enlargement. Uvula midline. NECK: Supple. Nontender. No lymphadenopathy. CHEST: CTAB. No r/r/w. No accessory muscle use. Breathing comfortably and in no distress. CV: RRR. Without m/r/g. Pulses intact. NEURO: Alert. PSYCH: Age appropriate behavior. Triage Information Reviewed: Yes Vital Signs: Initial Vital Signs Temp 99.0 F 02/28/19 21:42 Pulse 92 02/28/19 21:42 Resp 16 02/28/19 21:42 BP 140/98 02/28/19 21:42 Pulse Ox 100 02/28/19 21:42 Vital Signs Reviewed: Yes Throat Pain/Nasal Course/Dx - Course Course Of Treatment: Sinusitis - Differential Dx/Diagnosis Provider Diagnosis: Sinusitis Discharge - Sign-Out/Discharge Documenting (check all that apply): Patient Departure All imaging exams completed and their final reports reviewed: No Studies - Discharge Plan Condition: Stable Disposition: HOME Prescriptions: Azithromycin TAB* [Zithromax TAB (Z-FAY) 250 mg #6 tabs] 2 tab PO .TODAY, THEN 1 DAILY #1 fay Patient Education Materials: Sinusitis (ED) Referrals: Donna GALLO,Devan Rubalcava [Primary Care Provider] - Additional Instructions: If you develop a fever, shortness of breath, chest pain, new or worsening symptoms - please call your PCP or go to the ED. Your blood pressure was high at todays visit. Please see your primary provider within 4 weeks for recheck and re-evaluation. - Billing Disposition and Condition Condition: STABLE Disposition: Home
[2019-02-28] MEDS ORDERED: Azithromycin TAB* 250 MG PO ONE (21:57)
== END 2019-02-28 22:15 | disposition home or self-care (01) ==
LOC: UCEAST 21:22
DX: J32.9 Chronic sinusitis, unspecified (principal); J45.909 Unspecified asthma, uncomplicated; F41.9 Anxiety disorder, unspecified; F31.9 Bipolar disorder, unspecified; Z88.8 Allergy status to other drugs, medicaments and biological substances; Z91.048 Other nonmedicinal substance allergy status; Z87.891 Personal history of nicotine dependence
CPT/HCPCS: 99212; A9270-GY; G0463

== ENCOUNTER 2019-07-10 18:29 | Emergency (ER) | payer MEDICARE, MEDICAID ==
[2019-07-10] MEDS ORDERED: Cephalexin CAP* 500 MG PO ONE (19:04)
[2019-07-10 19:08] VITALS: BP 146/93
--- NOTE | 2019-07-10 19:11 | UC ---
Throat Pain/Nasal Dean HPI - HPI Summary HPI Summary: cough , sore throat and sinus congestion for the past 4 days. wheezing and hard to swallow. denies fever - History of Current Complaint Stated Complaint: COUGH Time Seen by Provider: 07/10/19 18:37 Hx Obtained From: Patient Hx Last Menstrual Period: [id number] ?: No Onset/Duration: Sudden Onset, Lasting Days Severity: Moderate Associated Signs & Symptoms: Positive: Dysphagia, Wheezing, Sinus Discomfort, Nasal Discharge Related History: Smoking - Allergies/Home Medications Allergies/Adverse Reactions: Allergies Allergy/AdvReac Type Severity Reaction Status Date / Time Adhesive Tape Allergy Blisters Verified 07/10/19 19:08 amoxicillin Allergy GI Upset Verified 07/10/19 19:09 eletriptan [From Relpax] Allergy Swelling Verified 07/10/19 19:08 Of Face,Lips,& Throat prednisone Allergy Agitation Verified 07/10/19 19:08 sertraline [From Zoloft] Allergy Hives Verified 07/10/19 19:08 sumatriptan [From Imitrex] Allergy Altered Verified 07/10/19 19:08 Mental Status METALS Allergy SKIN Uncoded 07/10/19 19:08 REACTION PMH/Surg Hx/FS Hx/Imm Hx Previously Healthy: Yes - Surgical History Surgical History: Yes Surgery Procedure, Year, and Place: ARTHROSCOPIC SURGERY LEFT KNEE - Family History Known Family History: Positive: Cardiac Disease, Hypertension, Diabetes Family History: Bipolar Disorder - Social History Alcohol Use: Occasionally Substance Use Type: Marijuana Smoking Status (MU): Former Smoker Type: Cigarettes Amount Used/How Often: 4 CIG/DAY When Did the Patient Quit Smoking/Using Tobacco: [id number] - Immunization History Most Recent Influenza Vaccination: Unknown Most Recent Pneumonia Vaccination: Unknown Review of Systems All Other Systems Reviewed And Are Negative: Yes ENT: Positive: Sore Throat, Ear Ache, Nasal Discharge, Sinus Congestion Respiratory: Positive: Shortness Of Breath, Cough Neurological: Positive: Headache Is Patient Immunocompromised?: No Physical Exam Triage Information Reviewed: Yes Appearance: Well-Nourished, Ill-Appearing, Pain Distress Vital Signs Reviewed: Yes Eye Exam: Normal ENT: Positive: Pharyngeal erythema, Nasal congestion, TM bulging, TM red - left ear, Tonsillar swelling, Tonsillar exudate, Sinus tenderness Dental Exam: Normal Neck exam: Normal Respiratory: Positive: Chest non-tender, No respiratory distress, No accessory muscle use, Wheezing, Inspiration Cardiovascular Exam: Normal Cardiovascular: Positive: RRR, No Murmur, Pulses Normal Abdominal Exam: Normal Abdomen Description: Positive: Nontender, No Organomegaly, Soft Musculoskeletal Exam: Normal Neurological Exam: Normal Psychological Exam: Normal Skin Exam: Normal Throat Pain/Nasal Course/Dx - Course Course Of Treatment: hx obtained, exam performed ,meds reviewed, treated for sinusitis and serous otitis. - Differential Dx/Diagnosis Differential Diagnosis/HQI/PQRI: Otitis Media, Pharyngitis, Sinusitis, URI Provider Diagnosis: Sinusitis, Acute serous otitis media of left ear Discharge ED - Sign-Out/Discharge Documenting (check all that apply): Patient Departure All imaging exams completed and their final reports reviewed: No Studies - Discharge Plan Condition: Stable Disposition: HOME Patient Education Materials: Sinusitis (ED) Referrals: Donna GALLO,Devan Rubalcava [Primary Care Provider] - Additional Instructions: 1. take the medication as prescribed. 2. Increase fluids and get plenty of rest 3. GI upse is common with all antibiotics, please take your antibiotics with meals to minimize upset. 4. Follow up if not improving. 5. Ibuprofen as needed for pain or fever. - Billing Disposition and Condition Condition: STABLE Disposition: Home
== END 2019-07-10 19:22 | disposition home or self-care (01) ==
LOC: UCEAST 18:29
DX: J32.9 Chronic sinusitis, unspecified (principal); H65.02 Acute serous otitis media, left ear; Z88.0 Allergy status to penicillin; Z87.891 Personal history of nicotine dependence
CPT/HCPCS: 99202; A9270-GY; G0463

== ENCOUNTER 2019-07-25 16:07 | Emergency (ER) | payer MEDICARE, MEDICAID ==
[2019-07-25] MEDS ORDERED: Bupivacaine 0.5% W/EPI SDV* 10 ML VIAL INJ ONE (19:23)
[2019-07-25] MEDS ORDERED: Bupivacaine 0.25% W/EPI* 10 ML SDV INJ ONE (19:23)
[2019-07-25] MEDS ORDERED: Levofloxacin TAB* 250 MG PO ONE (19:24)
--- NOTE | 2019-07-25 19:48 | ED ---
Complex/Multi-Sys Presentation - HPI Summary HPI Summary: The patient presents with approximately 1 week of h/o right upper bicuspid dental pain. She went to see her dentist last week and xrays reportedly showed an abscess and she was started on clindamycin 3 days ago, which she has been taking without improvement. No fever, no drainage, no swelling of the face/jaw. - History Of Current Complaint Chief Complaint: EDDentalPain Time Seen by Provider: 07/25/19 19:16 - Allergies/Home Medications Allergies/Adverse Reactions: Allergies Allergy/AdvReac Type Severity Reaction Status Date / Time Adhesive Tape Allergy Blisters Verified 07/25/19 16:16 amoxicillin Allergy GI Upset Verified 07/25/19 16:16 eletriptan [From Relpax] Allergy Swelling Verified 07/25/19 16:16 Of Face,Lips,& Throat prednisone Allergy Agitation Verified 07/25/19 16:16 sertraline [From Zoloft] Allergy Hives Verified 07/25/19 16:16 sumatriptan [From Imitrex] Allergy Altered Verified 07/25/19 16:16 Mental Status METALS Allergy SKIN Uncoded 07/10/19 19:08 REACTION PMH/Surg Hx/FS Hx/Imm Hx Endocrine/Hematology History: Denies: Hx Diabetes Cardiovascular History: Denies: Hx Myocardial Infarction Sensory History: Denies: Hx Contacts or Glasses, Hx Hearing Aid Opthamlomology History: Denies: Hx Contacts or Glasses Psychiatric History: Reports: Hx Anxiety, Hx Depression, Hx Community Mental Health Tx, Hx Suicide Attempt Denies: Hx Eating Disorder, Hx of Violent Episodes Against Others - Surgical History Surgery Procedure, Year, and Place: ARTHROSCOPIC SURGERY LEFT KNEE Infectious Disease History: No Infectious Disease History: Denies: Traveled Outside the [place] in Last 30 Days - Family History Known Family History: Positive: Cardiac Disease, Hypertension, Diabetes Family History: Bipolar Disorder - Social History Alcohol Use: Occasionally Hx Substance Use: No Substance Use Type: Reports: Marijuana Hx Tobacco Use: No Smoking Status (MU): Former Smoker Type: Cigarettes Amount Used/How Often: 4 CIG/DAY Review of Systems Positive: Fever - subjective Positive: Dental Pain All Other Systems Reviewed And Are Negative: No Physical Exam - Summary Physical Exam Summary: General: This is a well-developed, well- nourished young woman lying on the stretcher in no apparent distress. The patient does not appear ill or toxic. HEENT: Poor dentition. There is swelling about the base of the involved tooth, no pointing. Neck: No obvious swellings. Lungs: There are no signs of respiratory distress. Coronary: Peripheral perfusion is good. Abdomen: The abdomen appears normal and is nondistended. Genitourinary: Deferred Back: Good range of motion is observed. Extremities: Good range of motion was observed in all 4 extremities. There is no sign of any trauma to the extremities. Neurologic: The patient is awake and alert, speech is fluent and conversation is appropriate. Psychiatric: The patients affect is felt to be normal and appropriate. There is no sign of any hallucinations or delusions, or any other signs of psychosis. Vital Signs On Initial Exam: Initial Vitals Temp Pulse Resp BP Pulse Ox 35.9 C 114 18 162/112 93 07/25/19 16:12 07/25/19 16:12 07/25/19 16:12 07/25/19 16:12 07/25/19 16:12 Diagnostics - Vital Signs Vital Signs Temp Pulse Resp BP Pulse Ox 07/25/19 16:12 35.9 C 114 18 162/112 93 - Laboratory Lab Statement: Any lab studies that have been ordered have been reviewed, and results considered in the medical decision making process. Complex Multi-Symp Course/Dx - Diagnoses Provider Diagnoses: Dental abscess Discharge ED - Sign-Out/Discharge Documenting (check all that apply): Patient Departure Patient Received Moderate/Deep Sedation with Procedure: No - Discharge Plan Condition: Good Disposition: HOME Patient Education Materials: Dental Abscess (ED) Referrals: Donna GALLO,Devan Rubalcava [Primary Care Provider] - Additional Instructions: I would like to have you seen back here tomorrow to see how your pain is coming and to repeat the EKG. Best time would be late afternoon. When you check in, please show the triage nurse this paper and ask that an EKG be done while you are waiting to see the ED provider, as we are interested to see if there are any changes with the new antibiotic in your system. The local block should markedly improve your pain, at least for the next few hours. Continue taking OTC analgesics for the pain if the pain come back. - Billing Disposition and Condition Condition: GOOD Disposition: Home - Attestation Statements Document Initiated by Scribe: No
[2019-07-25 20:59] VITALS: BP 131/89
== END 2019-07-25 20:15 | disposition home or self-care (01) ==
LOC: ED 16:07
DX: K08.89 Other specified disorders of teeth and supporting structures (principal); F41.9 Anxiety disorder, unspecified; F32.9 Major depressive disorder, single episode, unspecified; Z87.891 Personal history of nicotine dependence; Z88.1 Allergy status to other antibiotic agents; Z88.8 Allergy status to other drugs, medicaments and biological substances
CPT/HCPCS: 93005; 96374; 99282; A9270-GY

== ENCOUNTER 2019-07-26 16:18 | Emergency (ER) | payer MEDICARE, MEDICAID ==
[2019-07-26] MEDS ORDERED: Clindamycin CAP* 150 MG PO ONE (18:58)
--- NOTE | 2019-07-26 18:58 | ED ---
Throat Pain/Nasal Congestion - HPI Summary HPI Summary: Patient was seen here yesterday for dental pain and abscess yesterday. Patient states she was evaluated by dentist 4 days ago was given clindamycin 3 days after 2 weeks of Keflex for separate infection. Patient states no improvement with clindamycin. Patient came to [facility] ED yesterday for dental pain, and was given 1 dose of Levaquin. Patient is on Seroquel, and due to risk of QTC elongation when taking Seroquel and Levaquin at the same time, baseline EKG was obtained yesterday's visit. Patient was advised to return today for repeat EKG to check QTc. Patient states improvement after 1 dose of Levaquin. Patient also received nerve block yesterday for dental pain. Patient denies any other symptoms, pain or injury. - History of Current Complaint Chief Complaint: EDGeneral Hx Obtained From: Patient Onset/Duration: Gradual Onset, Lasting Days Severity: Moderate Associated Signs And Symptoms: Positive: Negative Cough: None - Allergies/Home Medications Allergies/Adverse Reactions: Allergies Allergy/AdvReac Type Severity Reaction Status Date / Time Adhesive Tape Allergy Blisters Verified 07/25/19 16:16 amoxicillin Allergy GI Upset Verified 07/25/19 16:16 eletriptan [From Relpax] Allergy Swelling Verified 07/25/19 16:16 Of Face,Lips,& Throat prednisone Allergy Agitation Verified 07/25/19 16:16 sertraline [From Zoloft] Allergy Hives Verified 07/25/19 16:16 sumatriptan [From Imitrex] Allergy Altered Verified 07/25/19 16:16 Mental Status METALS Allergy SKIN Uncoded 07/10/19 19:08 REACTION PMH/Surg Hx/FS Hx/Imm Hx Endocrine/Hematology History: Denies: Hx Diabetes Cardiovascular History: Denies: Hx Myocardial Infarction History: Denies: Hx Dialysis Sensory History: Denies: Hx Contacts or Glasses, Hx Hearing Aid Opthamlomology History: Denies: Hx Contacts or Glasses EENT History: Denies: Hx Deafness Neurological History: Denies: Hx Dementia Psychiatric History: Reports: Hx Anxiety, Hx Depression, Hx Community Mental Health Tx, Hx Suicide Attempt Denies: Hx Eating Disorder, Hx of Violent Episodes Against Others - Surgical History Surgery Procedure, Year, and Place: ARTHROSCOPIC SURGERY LEFT KNEE - Immunization History Immunizations Up to Date: Yes Infectious Disease History: No Infectious Disease History: Denies: Traveled Outside the [place] in Last 30 Days - Family History Known Family History: Positive: Cardiac Disease, Hypertension, Diabetes Family History: Bipolar Disorder - Social History Alcohol Use: Occasionally Hx Substance Use: No Substance Use Type: Reports: Marijuana Hx Tobacco Use: No Smoking Status (MU): Former Smoker Type: Cigarettes Amount Used/How Often: 4 CIG/DAY Review of Systems Constitutional: Negative Eyes: Negative Positive: Dental Pain Cardiovascular: Negative Respiratory: Negative Gastrointestinal: Negative Genitourinary: Negative Musculoskeletal: Negative Skin: Negative Neurological: Negative Psychological: Normal All Other Systems Reviewed And Are Negative: Yes Physical Exam Triage Information Reviewed: Yes Vital Signs On Initial Exam: Initial Vitals Temp Pulse Resp BP Pulse Ox 97.5 F 99 18 154/105 98 07/26/19 16:21 07/26/19 16:21 07/26/19 16:21 07/26/19 16:21 07/26/19 16:21 Vital Signs Reviewed: Yes Appearance: Positive: Well-Appearing Skin: Positive: Warm Head/Face: Positive: Normal Head/Face Inspection Eyes: Positive: Normal ENT: Positive: Normal ENT inspection Dental: Negative: Abscess @, Cellulitis @ Respiratory/Lung Sounds: Positive: Clear to Auscultation Cardiovascular: Positive: Normal Abdomen Description: Positive: Nontender Musculoskeletal: Positive: Normal Neurological: Positive: Normal Psychiatric: Positive: Normal AVPU Assessment: Alert - [place] Coma Scale Best Eye Response: 4 - Spontaneous Best Motor Response: 6 - Obeys Commands Best Verbal Response: 5 - Oriented Coma Scale Total: 15 Diagnostics - Vital Signs Vital Signs Temp Pulse Resp BP Pulse Ox 07/26/19 16:21 97.5 F 99 18 154/105 98 - Laboratory Lab Statement: Any lab studies that have been ordered have been reviewed, and results considered in the medical decision making process. EENT Course/Dx - Course Course Of Treatment: Patient was seen here yesterday for dental pain and abscess yesterday. Patient states she was evaluated by dentist 4 days ago was given clindamycin 3 days after 2 weeks of Keflex for separate infection. Patient states no improvement with clindamycin. Patient came to [facility] ED yesterday for dental pain, and was given 1 dose of Levaquin. Patient is on Seroquel, and due to risk of QTC elongation when taking Seroquel and Levaquin at the same time, baseline EKG was obtained yesterday's visit. Patient was advised to return today for repeat EKG to check QTc. Patient states improvement after 1 dose of Levaquin. Patient also received nerve block yesterday for dental pain. Patient denies any other symptoms, pain or injury. Vital signs within normal limits. EKG consistent with prior. Due to apparent ineffectiveness of clindamycin, and possible effectiveness of Levaquin, patient was advised to call dentist in the morning for advice on which antibiotics to take for dental abscess. She was given 1 dose of clindamycin here in the ED. Rx for clindamycin and Levaquin was sent to pharmacy. Patient advised to take clindamycin until advised otherwise by dentist. Rx for Levaquin made available should dentist recommend Levaquin due to possible ineffectiveness of clindamycin. Patient advised if she starts taking Levaquin to get repeat EKG monitoring from primary care, urgent care or the ED. Patient understands and approves of plan. - Diagnoses Provider Diagnoses: Dental abscess Discharge ED - Sign-Out/Discharge Documenting (check all that apply): Patient Departure Patient Received Moderate/Deep Sedation with Procedure: No - Discharge Plan Condition: Stable Disposition: HOME Prescriptions: Clindamycin HCl 300 mg PO TID 4 Days #13 capsule Levofloxacin TAB* [Levaquin TAB*] 750 mg PO DAILY 5 Days #5 tab Patient Education Materials: Dental Abscess (ED) Referrals: Donna GALLO,Devan Rubalcava [Primary Care Provider] - Additional Instructions: Contact your dentist tomorrow regarding which antibiotic he should take given your penicillin allergy and your prescription for Seroquel. Levaquin may interact with Seroquel to cause cardiac disturbances. Take clindamycin until you consult with dentist. If your dentist ends up recommending Levaquin due to ineffectiveness of clindamycin, make sure to monitor EKGs while taking. Do not take both clindamycin and Levaquin. Return to the ED for any new or worsening symptoms. - Billing Disposition and Condition Condition: STABLE Disposition: Home - Attestation Statements Provider Attestation: I was available for consult. This patient was seen by the TYLER. The patient was not presented to, seen by, or examined by me. Amrit Velazquez MD
[2019-07-26 19:16] VITALS: BP 135/89
== END 2019-07-26 19:15 | disposition home or self-care (01) ==
LOC: ED 16:18
DX: K04.7 Periapical abscess without sinus (principal); F41.9 Anxiety disorder, unspecified; F32.9 Major depressive disorder, single episode, unspecified; Z87.891 Personal history of nicotine dependence; Z88.1 Allergy status to other antibiotic agents; Z88.8 Allergy status to other drugs, medicaments and biological substances; Z79.899 Other long term (current) drug therapy
CPT/HCPCS: 93005; 99282

== ENCOUNTER 2019-09-06 15:04 | Emergency (ER) | payer MEDICARE, MEDICAID ==
[2019-09-06 15:36] VITALS: BP 118/77
--- NOTE | 2019-09-06 16:40 | UC ---
Throat Pain/Nasal Dean HPI - HPI Summary HPI Summary: 5 DAYS OF SORE THROAT, PAIN WITH SWALLOWING, SINUS/NASAL CONGESTION AND EAR PAIN. NO FEVER. NO NAUSEA/VOMITING. NO SIGNIFICANT COUGH. - History of Current Complaint Chief Complaint: UCRespiratory Stated Complaint: SORE THROAT, AND SINUS CONGESTION Time Seen by Provider: 09/06/19 16:23 Hx Obtained From: Patient Hx Last Menstrual Period: 07/05/19 Onset/Duration: Gradual Onset, Lasting Days, Still Present Severity: Moderate Pain Intensity: 7 Pain Scale Used: 0-10 Numeric Cough: None Associated Signs & Symptoms: Positive: Sinus Discomfort, Nasal Discharge - Allergies/Home Medications Allergies/Adverse Reactions: Allergies Allergy/AdvReac Type Severity Reaction Status Date / Time Adhesive Tape Allergy Blisters Verified 09/06/19 15:36 amoxicillin Allergy GI Upset Verified 09/06/19 15:36 eletriptan [From Relpax] Allergy Swelling Verified 09/06/19 15:36 Of Face,Lips,& Throat prednisone Allergy Agitation Verified 09/06/19 15:36 sertraline [From Zoloft] Allergy Hives Verified 09/06/19 15:36 sumatriptan [From Imitrex] Allergy Altered Verified 09/06/19 15:36 Mental Status METALS Allergy SKIN Uncoded 07/10/19 19:08 REACTION Home Medications: Home Medications D-Methorphan/PE/Acetaminophen [Cold Multi-Symptom Caplet] 1 tab PO Q6HR [History Confirmed 09/06/19] PMH/Surg Hx/FS Hx/Imm Hx Psychological History: Anxiety, Depression, Bipolar Disorder - Surgical History Surgical History: None Surgery Procedure, Year, and Place: ARTHROSCOPIC SURGERY LEFT KNEE - Family History Known Family History: Positive: Cardiac Disease, Hypertension, Diabetes Family History: Bipolar Disorder - Social History Alcohol Use: Occasionally Substance Use Type: Marijuana Substance Use Comment - Amount & Last Used: occasionally Smoking Status (MU): Light Every Day Tobacco Smoker Type: Cigarettes Amount Used/How Often: 4 CIG/DAY When Did the Patient Quit Smoking/Using Tobacco: 111840 - Immunization History Most Recent Influenza Vaccination: Unknown Most Recent Pneumonia Vaccination: Unknown Review of Systems All Other Systems Reviewed And Are Negative: Yes Constitutional: Positive: Negative ENT: Positive: Sore Throat, Ear Ache, Nasal Discharge, Sinus Congestion Respiratory: Positive: Negative Cardiovascular: Positive: Negative Gastrointestinal: Positive: Negative Physical Exam Triage Information Reviewed: Yes Appearance: Well-Appearing, Well-Nourished Vital Signs: Initial Vital Signs Temp 97.4 F 09/06/19 15:29 Pulse 102 09/06/19 15:29 Resp 18 09/06/19 15:29 BP 118/77 09/06/19 15:29 Pulse Ox 100 09/06/19 15:29 Laboratory Tests 09/06/19 16:48 Group A Strep Rapid Negative Vital Signs Reviewed: Yes Eyes: Positive: Conjunctiva Clear ENT: Positive: Hearing grossly normal, Pharyngeal erythema, Nasal congestion, TMs normal. Negative: Tonsillar swelling, Tonsillar exudate, Muffled voice Neck: Positive: Supple, Tenderness @ - SPFL CERVICAL LAD, Enlarged Nodes @ - SPFL CERVICAL LAD Respiratory Exam: Normal Cardiovascular: Positive: Tachycardia Abdomen Description: Positive: Soft Musculoskeletal: Positive: No Edema Neurological: Positive: Alert Psychological: Positive: Age Appropriate Behavior Skin: Negative: Rashes Throat Pain/Nasal Course/Dx - Differential Dx/Diagnosis Provider Diagnosis: Acute viral sinusitis Discharge ED - Sign-Out/Discharge Documenting (check all that apply): Patient Departure All imaging exams completed and their final reports reviewed: No Studies - Discharge Plan Condition: Stable Disposition: HOME Patient Education Materials: Pharyngitis (ED), Sinusitis (ED) Referrals: Donna GALLO,Devan Rubalcava [Primary Care Provider] - If Needed Additional Instructions: STREP TEST NEGATIVE. YOUR SYMPTOMS ARE LIKELY VIRALLY MEDIATED AND SHOULD RESOLVE ON THEIR OWN WITH TIME. NO INDICATION FOR ANTIBIOTICS AT PRESENT. REST, HYDRATE, OTC MEDS NEEDED. SEEK FOLLOW-UP IF YOU ARE NOT IMPROVING OVER THE NEXT 1-2 WEEKS. USE OTC AFRIN FOR NASAL CONGESTION. 2 SPRAYS IN EACH NOSTRIL TWICE DAILY NEEDED. DO NOT USE FOR MORE THAN 3-4 DAYS IN A ROW TO PREVENT DEVELOPING REBOUND CONGESTION. - Billing Disposition and Condition Condition: STABLE Disposition: Home
== END 2019-09-06 17:22 | disposition home or self-care (01) ==
LOC: UCEAST 15:04
DX: J01.90 Acute sinusitis, unspecified (principal); B97.89 Other viral agents as the cause of diseases classified elsewhere; F17.210 Nicotine dependence, cigarettes, uncomplicated; F31.9 Bipolar disorder, unspecified; J02.9 Acute pharyngitis, unspecified; Z91.09 Other allergy status, other than to drugs and biological substances; Z88.0 Allergy status to penicillin; Z88.8 Allergy status to other drugs, medicaments and biological substances
CPT/HCPCS: 87651; 99211; G0463

== ENCOUNTER 2019-11-06 13:38 | Emergency (ER) | payer MEDICARE, MEDICAID ==
--- OUTSIDE RECORDS SUMMARY | 2019-11-06 13:46 | XMS REPORT | Continuity of Care Document ---
:1985 Author Organization [facility] [employer] [facility] Address [address] [place] [address] Phone Care Team Providers Name Role Phone JASON GUERRERO MD Unavailable Unavailable Allergies, Adverse Reactions, Alerts Substance Reaction Status DULOXETINE HCL Palpatations, sweats, tremulous. Active zolmitriptan Active amoxicillin Nausea Active SUMATRIPTAN SUCCINATE muscle weakness on the right renu Active sumatriptan muscle weakness on the right renu Active aripiprazole visual disturbance Active adhesive tape Active SERTRALINE HCL Active ELETRIPTAN HBR Active Medications Medication Instructions Dosage Effective Dates Status Comments (start - stop) Ambien 5 mg tablet take 1 tablet by oral 5 MG - Active route every day at bedtime Problems Condition Effective Dates (start - stop) Clinical Status Unknown Procedures Procedure Date Procedure Unknown Results Test Name Date and Time Measure Units Reference Range Abnormal Flag Status Comments Unknown Encounters Encounter Practice Location Reason(s) Diagnoses Date Provider Providers Description For Visit Copied on Encounter 2018 - [facility] [place], [facility] [address], [address], [place], [address]. tel:[phone] tel:[phone] 2018 [facility] [place], [address] [place] [address], [address], [place], [address]. tel:[phone] tel:[phone] [place], [place] [address]S [facility], [address] [place] -2009 JASON. [facility] Provider: [address] [address], [facility], [address]. [place], [place], tel:[phone] tel:[phone] tel:[phone] - [facility], [address] [place] -[address] JASON[address], [place], [address], [place], [address]. tel:[phone] tel:[phone] 0001 - [facility] Primary [facility], [address] [place] -[address] JASON[address], [place], [address], [place], [address]. tel:[phone] tel:[phone] 2018 - [facility] Primary [facility], [address] [place] -[address] JASON[address], [place], [address], [place], [address]. tel:[phone] tel:[phone] 2018 - [facility], [address] [place] -[address] JASON[address], [place], [address], [place], [address]. tel:[phone] tel:[phone] Family History Family Member Diagnosis Age At Onset Family history of Thyroid disorder Family history of Cancer, unknown Family history of Diabetes mellitus Immunizations Vaccine Date Status Comments flu (split) (3 yrs or older) administered Source: New Immunization 0.5 mL IM without preservatives Record Payers Payer name Insurance type Covered republican ID Authorization(s) Medicare Mc [id number] Medicare Mc [id number] Medicaid He [id number] Social History Type Description Quantity Date Captured Comments Alcohol Use Details Unknown Caffeine Use Details Unknown Tobacco Use Status Smoking Status Unknown Vital Signs Date / Height Weight BMI Pulse Blood Temperature Respiratory Body Head BMI Time: Rate Pressure Rate Surface Circumference percentile Area Unknown Chief Complaint And Reason For Visit No information Reason For Referral Reason For Referral Unknown Plan Of Care Date Type Action Status Unknown Date Type Problem Goal Intervention Status Start Date Unknown History Of Present Illness Encounter Date Complaint History Of Present Illness No information Functional Status Encounter Date Functional Assessment Cognitive Assessment Unknown Medications Administered Medication Instructions Dosage Effective Dates (start - stop) Status Comments Drug Treatment Unknown Instructions Date Instruction Additional Information Unknown
--- OUTSIDE RECORDS SUMMARY | 2019-11-06 13:46 | XMS REPORT | Continuity of Care Document ---
:1985 Author Organization [facility] [employer] [facility] Address [address], [place] [address] Phone Care Team Providers Name Role Phone [...] Effective Dates Status Comments (start - stop) Ventolin HFA 90 inhale 2 puff by 2 puff - Active mcg/actuation aerosol Inhalation route inhaler every 4 - 6 hours as needed Problems Condition Effective Dates (start - stop) Clinical Status Unknown Procedures Procedure Date Procedure Unknown Results Test Name Date and Time Measure Units Reference Range Abnormal Flag Status Comments Unknown Encounters Encounter Practice Location Reason(s) Diagnoses Date Provider Providers Description For Visit Copied on Encounter 2018 - [facility] Primary [employer], [address], [place], [facility] [place], [address]. tel:[phone] tel:[phone] 2018 [facility] [employer] Primary [employer], [address] [place] [address], [place], [address], [place], [address]. tel:[phone] tel:[phone] 2018 - [facility] Primary [employer], Care [place] -2009 JASON. [facility] Provider: [address] [address], [place], [address]. [place], [place], tel:[phone] tel:[phone] tel:[phone] - [facility] Primary [employer] [facility], [place] -[address], [place], [address], [place], [address]. tel:[phone] tel:[phone] - [facility] Primary [facility], [place] -[address], [place], [address], [place], [address]. tel:[phone] tel:[phone] 2018 - [facility] Primary [employer] [facility], [place] -[address], [place], [address], [place], [address]. tel:[phone] tel:[phone] 2018 - [facility] [employer] [facility], [place] -[address], [place], [address], [place], [address]. tel:[phone] tel:[phone] Family History Family Member Diagnosis Age At Onset Family history of Thyroid disorder Family history of Cancer, unknown Family history of Diabetes mellitus Immunizations Vaccine Date Status Comments flu (split) (3 yrs or older) administered Source: New Immunization 0.5 mL IM without preservatives Record Payers Payer name Insurance type Covered alliance party ID Authorization(s) Medicare Mc [id number] Medicare Mc [id number] Medicaid He [id number] Social History Type Description Quantity Date Captured [...]
--- OUTSIDE RECORDS SUMMARY | 2019-11-06 13:46 | XMS REPORT | Continuity of Care Document ---
:1985 External Reference #:[id number] Author Name Blair Solorzano M.D. Address [address] [place] 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 Onset: 12/15/2015 Myopia Rl Davey O.D. Onset: 12/15/2015 Migraine variants, not intractable Rl Davey O.D. Onset: 12/15/2015 Social History Type Date Description Comments Sex Unknown ETOH Use Occasionally consumes alcohol Tobacco Use Start: Unknown Patient has never smoked Smoking Status Reviewed: 09/22/19 Patient has never smoked Allergies, Adverse Reactions, Alerts Active Allergies Reaction Severity Comments Date Zoloft 12/15/2015 Zomig 12/15/2015 Relpax 12/15/2015 Imitrex 12/15/2015 Adhesives 12/15/2015 Metals 12/15/2015 Levaquin 09/22/2019 Medications Active Medications SIG Qnty Indications Ordering Provider Date Seroquel Unknown 200mg Tablets Lamictal Unknown 100mg Tablets Aciphex Unknown 20mg Tablets DR French 1 by mouth every Unknown 10mg Tablets day Ambien Unknown 10mg Tablets Prozac Unknown 10mg Capsules Axert Unknown 12.5mg Tablets Immunizations Description No Information Available Vital Signs Date Vital Result Comment 09/22/2019 11:10am Intraocular Pressure Right Eye 12 mmHg Intraocular Pressure Left Eye 12 mmHg 12/04/2016 3:46pm Intraocular Pressure Right Eye 13 mmHg Intraocular Pressure Left Eye 13 mmHg Results Description No Information Available Procedures Date Code Description Status 09/22/2019 81996 Eye Exam Est Comprehensive Completed Medical Devices Description No Information Available Encounters Description No Information Available Assessments Date Code Description Provider 09/22/2019 G43.B0 Ophthalmoplegic migraine, not intractable Blair Solorzano M.D. 09/22/2019 H52.223 Regular astigmatism, bilateral Blair Solorzano M.D. Plan of Treatment 09/22/2019 - Blair Solorzano M.D.G43.B0 Ophthalmoplegic migraine, not [id number] Regular astigmatism, bilateralFollow up:1 yr Functional Status Description No Information Available Mental Status Description No Information Available Referrals Description No Information Available
--- OUTSIDE RECORDS SUMMARY | 2019-11-06 13:46 | XMS REPORT | Continuity of Care Document ---
:1985 Author Organization [facility] Address [address] [place] [address] Phone Care Team Providers Name Role Phone [...] Active Medications Medication Instructions Dosage Effective Dates (start - stop) Status Comments Drug Treatment Unknown Problems Condition Effective Dates (start - stop) Clinical Status Unknown Procedures Procedure Date Procedure Unknown Results Test Name Date and Time Measure Units Reference Range Abnormal Flag Status Comments Unknown Encounters Encounter Practice Location Reason(s) Diagnoses Date Provider Providers Description For Visit Copied on Encounter 2018 [facility] Primary [employer], [facility] [place] [address], [place], [facility], [facility], [address]. tel:[phone] tel:[phone] 2018 [facility] [employer], [address] [place] [address], [place], [facility], [facility], [address]. tel:[phone] tel:[phone] 2018 [facility] Primary [facility] [employer] [facility], [facility] Provider: [address], [facility] [address], [place], [address]. [place], [place], tel:+ tel:[phone] tel:[phone] - [facility] [employer] [facility], [place] -[address], [place], [address], [place], [address]. tel:[phone] tel:[phone] - [facility] [employer] [facility], [place] -2008 [place]. [address], [place], [address], [place], [address]. tel:[phone] tel:[phone] - [facility] [employer] [facility], [address] [place] -[address], [place], [address], [place], [address]. tel:[phone] tel:[phone] [facility] - [facility] [employer] [facility], [address] [place] -[address], [place], [address], [place], [address]. tel:[phone] tel:[phone] Family History Family Member Diagnosis Age At Onset Family history of Thyroid disorder Family history of Cancer, unknown Family history of Diabetes mellitus Immunizations Vaccine Date Status Comments flu (split) (3 yrs or older) administered Source: New Immunization 0.5 mL IM without preservatives Record Payers Payer name Insurance type Covered republican ID Authorization(s) Medicare [id number] Medicare Mc [id number] Medicaid He [id number] Social History Type Description Quantity Date Captured [...]
--- OUTSIDE RECORDS SUMMARY | 2019-11-06 13:46 | XMS REPORT | Continuity of Care Document ---
:1985 Author Organization [facility] Address [address] [place] [address] Phone Care Team Providers Name Role Phone [...] Description For Visit Copied on Encounter 2018 [facility] Primary [employer], [address] [place] [address], [place], [facility], [facility], [address]. tel:[phone] tel:[phone] 2018 [facility], [address] [place] [address], [place], [facility], [facility], [address]. tel:[phone] tel:[phone] 2018 [facility] Primary [facility], [facility] Provider: [address], [facility] [address], [facility], [address]. [place], [place], tel:+ tel:[phone] tel:[phone] - [facility], Care [place] -[address], [place], [address], [place], [address]. tel:[phone] tel:[phone] 0001 - [facility], [place] -[address], [place], [address], [place], [address]. tel:[phone] tel:[phone] 0001 - [facility], [address] [place] -[address], [place], [address], [place], [address]. tel:[phone] tel:[phone] [facility] - [facility], [address] [place] -[address], [place], [address], [place], [address]. tel:[phone] tel:[phone] Family History Family Member Diagnosis Age At Onset Family history of Thyroid disorder Family history of Cancer, unknown Family history of Diabetes mellitus Immunizations Vaccine Date Status Comments flu (split) (3 yrs or older) administered Source: New Immunization 0.5 mL IM without preservatives Record Payers Payer name Insurance type Covered green party ID Authorization(s) Medicare [id number] Medicare Mc [id number] Medicaid He [id number] Social History Type Description Quantity Date Captured Comments Alcohol Use Details Unknown Caffeine Use Details Unknown Tobacco Use Status Unknown Smoking Status Unknown Vital Signs Date / [...]
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
[2019-11-06] MEDS ORDERED: oxyCODONE/Acetamin 5/325 MG* TAB PO ONE (15:54)
[2019-11-06] MEDS ORDERED: Penicillin VK 500 MG TAB(NF) PO ONE (16:00)
[2019-11-06] MEDS ORDERED: Penicillin VK TAB* 250 MG PO ONE ×2 (16:20→16:22)
[2019-11-06 16:30] VITALS: BP 125/91
== END 2019-11-06 16:29 | disposition home or self-care (01) ==
LOC: ED 13:38
DX: S02.5XXA Fracture of tooth (traumatic), initial encounter for closed fracture (principal); S03.2XXA Dislocation of tooth, initial encounter; Y04.2XXA Assault by strike against or bumped into by another person, initial encounter; Y92.9 Unspecified place or not applicable; F41.9 Anxiety disorder, unspecified; F32.9 Major depressive disorder, single episode, unspecified; F17.210 Nicotine dependence, cigarettes, uncomplicated; Z88.0 Allergy status to penicillin; Z88.8 Allergy status to other drugs, medicaments and biological substances
CPT/HCPCS: 70450; 70486; 99282; A9270-GY